=== PATIENT | female | born 1990 ===

== ENCOUNTER 2023-04-12 04:32 | Emergency (ER) | payer OTHER ==
--- NOTE | 2023-04-12 04:44 | ED Physician Documentation ---
PD HPI DYSPNEA - Stated complaint Stated Complaint: SOA - History obtained from History obtained from: Patient - Additional information Additional information: HPI from patient. Patient c/o pain across upper abdomen, described as "aching" that radiates around both sides to back and to both shoulders. Pain woke her from sleep at approximately 3:30 AM this morning. Denies h/o similar symptoms. Pain is pleuritic. Denies chances of . Has not noticed any leg swelling. Denies cough. No ameliorating factors. Review of Systems Constitutional: reports: Reviewed and negative Cardiac: denies: Chest pain / pressure, Palpitations, Pedal edema, Calf pain Respiratory: reports: Dyspnea (dyspnea only in the sense that the upper abdominal pain is pleuritic, making deep breath in difficult at times) PD PAST MEDICAL HISTORY - Past Medical History Past Medical History: No - Present Medications Home Medications: Ambulatory Orders Medication Instructions Recorded Confirmed lamoTRIgine [Lamotrigine Odt] 400 mg PO DAILY 04/12/23 04/12/23 traMADol [Ultram] 50 - 100 mg PO Q6H PRN #14 tablet 04/12/23 - Allergies Allergies/Adverse Reactions: Allergies Allergy/AdvReac Type Severity Reaction Status Date / Time azithromycin [From Zithromax] Allergy Severe Hives Verified 04/12/23 05:02 bupropion [From Wellbutrin] AdvReac Severe Unknown Verified 04/12/23 05:02 PD ED PE NORMAL - Vitals Vital signs reviewed: Yes - General General: Alert and oriented X 3, Well developed/nourished, Other (mostly NAD but episodically appears uncomfortable) - Cardiac Cardiac: RRR, No murmur, No gallop, No rub - Respiratory Respiratory: No respiratory distress, Clear bilaterally - Abdomen Abdomen: Soft, Non tender Results - Vitals Vitals: Oxygen O2 Source Room air - Labs Labs: Laboratory Tests 04/12/23 04/12/23 05:33 05:33 WBC 9.9 RBC 4.09 L Hgb 9.0 L Hct 29.6 L MCV 72.4 L MCH 22.0 L MCHC 30.4 L RDW 18.3 H Plt Count 273 MPV 9.1 Neut # (Auto) 8.4 H Lymph # (Auto) 0.7 L Branch # (Auto) 0.7 Eos # (Auto) 0.1 Baso # (Auto) 0.0 Absolute Nucleated RBC 0.00 Nucleated RBC % 0.0 Sodium 136 Potassium 3.7 Chloride 108 Carbon Dioxide 23 Anion Gap 5.0 L BUN 11 Creatinine 0.8 Estimated GFR (MDRD) 84 L Glucose 93 Calcium 8.7 Total Bilirubin 0.9 AST 361 H ALT 171 H Alkaline Phosphatase 154 H Total Protein 6.6 Albumin 3.7 Globulin 2.9 Albumin/Globulin Ratio 1.3 Lipase 35 PD Medical Decision Making - ED course Complexity details: reviewed results, re-evaluated patient, considered differential, d/w patient ED course: Given IM toradol and, on reevaluation, she is sleeping; awakens easily to voice, reports good symptomatic relief. Results d/w patient. Notable abnormalities include h/h of 9.0/29.6 with low indices, and AST/ALT 361/171, alkaline phosphatase 154 but normal bilirubin. No abnormalities on electrolytes, bun/creatinine, blood sugar. There are no previous results available for comparison. Differential diagnoses included gallstones, gastritis, GERD. Unfortunately, US is not available at this hour. Given patient's symptom resolution with non- narcotic (ketorolac), it is reasonable to defer further study (such as RUQ US) to outpatient setting. Return precautions are carefully reviewed/emphasized. Regarding elevated transaminases, patient denies any heavy/regular/recent alcohol use and she uses tylenol occasionally but her description is not of overuse (frequency nor dose). No recent travel outside of [place] (viral hepatitis also on differential). Patient asks about rx for toradol. Given the specific warning regarding regular toradol use and possible effect on renal function, we discussed other options for PO pain control should she have recurrence of this pain, and tramadol is e- prescribed I am prescribing a short course of short-acting opioid pain medication for this patient. I have reviewed the patients [employer] and no concerning findings were noted. I have discussed that the opioids are for short term therapy only, and wi ll not be refilled from the ED. Departure - Departure Disposition: 01 Home, Self Care Clinical Impression: Abdominal pain Qualifiers: Abdominal location: upper abdomen, unspecified Qualified Code(s): R10.10 - Upper abdominal pain, unspecified Anemia Qualifiers: Anemia type: unspecified type Qualified Code(s): D64.9 - Anemia, unspecified Condition: Good Instructions: ED Abdominal Pain Female Non-Specific Abdominal Pain, ED Anemia Type Not Specified Follow-Up: [facility] [Provider Group] Prescriptions: traMADol [Ultram] 50 - 100 mg PO Q6H PRN #14 tablet PRN Reason: Pain >8 Comments: There were no diagnostic findings on tonight's blood test. Your red blood cell levels are low (anemia). The levels are not nearly low enough to require transfusions, and I do not think they are low enough to cause any significant symptoms. Some degree of fatigue/lack of energy could be attributed to your anemia. You should follow-up with your primary care provider to discuss this finding. Further testing would likely lead to an explanation for regarding the cause of the anemia, which, in turn, might indicate a specific treatment to help raise your red blood cell levels to a normal range. For example, iron deficiency anemia is one of the more likely causes of your anemia based on some of the other lab tests on the red blood cells. This can be determined by your primary care provider. Alternatively, your primary care provider might have already performed these tests, in which case they will likely recommend that you take daily iron pills. The only other notable finding on your blood tests were your liver function tests; specifically, you had mild elevations in your liver enzymes. It is not clear what is causing this finding, but it could possibly explain your abdominal pain (the liver is in the right upper quadrant and across the upper abdomen in the midline, and elevated liver enzymes might indicate inflammation of the liver, which is typically painful). You should most certainly follow-up with your primary care provider, ideally within the next 7 to 10 days, for reevaluation of this finding. Further testing will likely be necessary (such as repeat testing of the liver enzymes to see if they remain elevated, and then other tests if the liver function test have not returned to normal). To help control your pain on a short-term basis, I am electronically submitting a prescription for tramadol (mild opiate/narcotic pain medication) to the [facility] pharmacy in [place]. I am prescribing a short course of narcotic pain medication for you. These are potentially dangerous and addictive medications that should be used carefully. These medications may constipate you. Take an fqjl-rhw-krnqjez stool softener (docusate) twice daily with plenty of water while taking these medications. If you go 24 hours without a bowel movement, take tccb-[id number] miralax, per package instructions. Do not drink or drive while taking these medications. If you received narcotic or sedating medications while in the emergency department, do not drive for 24 hours. Store this medication in a safe, secure place and out of reach of children. It is a violation of federal law to give or sell this medication to another p erson or to use in a manner other than prescribed. The ED will not refill narcotic prescriptions, including prescriptions lost or stolen. To dispose of unwanted medications: 1. [facility] [address] in [place] has a medication drop box. They accept prescription medications (in pill form) Friday through Friday 9:00 a.m. to 5:00 p.m. 2. [facility] accepts prescription medications (in pill form only) for disposal year round. Call for more information. 3. Contact the [facility] for the next [facility] sponsored prescription drug collection event. , [phone], or [phone]; Forms: PCP List Discharge Date/Time: 04/12/23 07:04
[2023-04-12] MEDS ORDERED: KETOROLAC 60 MG/2 ML VIAL IM STA (05:26)
[2023-04-12 05:37] LABS: BASOPHILS % (AUTO) 0.2 %; EOSINOPHILS # (AUTO) 0.1 10^3/uL (0.0-0.7); HCT - HEMATOCRIT 29.6 % (37.0-47.0); LYMPHOCYTES # (AUTO) 0.7 10^3/uL (1.5-3.5); LYMPHOCYTES % (AUTO) 7.3 %; MEAN CORPUSCULAR HGB CONC 30.4 g/dL (32.0-36.0); MEAN CORPUSCULAR VOLUME 72.4 fL (81.0-99.0); MEAN PLATELET VOLUME 9.1 fL (7.9-10.8); MONOCYTES # (AUTO) 0.7 10^3/uL (0.0-1.0); MONOCYTES % (AUTO) 6.6 %; NEUTROPHILS # (AUTO) 8.4 10^3/uL (1.5-6.6); NEUTROPHILS % (AUTO) 84.5 %; PLT - PLATELET COUNT 273 10^3/uL (130-450); RED BLOOD COUNT 4.09 10^6/uL (4.20-5.40); RED CELL DISTRIBUTION WIDTH 18.3 % (12.0-15.0); WHITE BLOOD COUNT 9.9 x10^3/uL (4.8-10.8)
[2023-04-12 05:54] LABS: ALBUMIN 3.7 g/dL (3.2-5.5); ALBUMIN/GLOBULIN RATIO 1.3 (1.0-2.2); BILIRUBIN,TOTAL 0.9 mg/dL (0.2-1.0); CALCIUM 8.7 mg/dL (8.5-10.3); CREATININE 0.8 mg/dL (0.6-1.3); POTASSIUM 3.7 mmol/L (3.5-4.5); TOTAL PROTEIN 6.6 g/dL (6.4-8.9)
[2023-04-12 07:07] VITALS: BP 101/47
== END 2023-04-12 07:04 | disposition home or self-care (01) ==
LOC: ED 04:32
DX: R10.10 Upper abdominal pain, unspecified (principal); D64.9 Anemia, unspecified; R74.01 Elevation of levels of liver transaminase levels
CPT/HCPCS: 36415; 80053; 83690; 85025; 96372; 99283; 99284

== ENCOUNTER 2024-01-30 06:29 | Day surgery (SDC) | payer OTHER ==
[~2024-01-30 06:29] MED LIST: ceFAZolin 1 GM VIAL ONE; ceFAZolin 2 GM VIAL ONE; metroNIDAZOLE 500 MG/100 ML 500 MG/100 ML BAG ONE
[2024-01-30] MEDS: LACTATED RINGERS 1,000 ML IV ONE (06:33)
[2024-01-30 06:51] LABS: HCG UR QUAL NEGATIVE
[2024-01-30] MEDS: ACETAMINOPHEN 325 MG TABLET PO ONE (06:59)
[2024-01-30] MEDS ORDERED: LIDOCAINE-PF 2% 10 ML AMP SUBQ ONE (07:06)
[2024-01-30] MEDS ORDERED: PROPOFOL 200 MG/20 ML VIAL IVP ONE ×2 (07:06→08:46)
[2024-01-30] MEDS ORDERED: ROCURONIUM 50 MG/5 ML VIAL ONE ×2 (07:06→08:19)
[2024-01-30] MEDS ORDERED: MIDAZOLAM 2 MG/2 ML VIAL ONE (07:06)
[2024-01-30] MEDS ORDERED: ONDANSETRON 4 MG/2 ML VIAL ONE (07:06)
[2024-01-30] MEDS ORDERED: DEXAMETHASONE 4 MG/ML VIAL ONE (07:06)
[2024-01-30] MEDS ORDERED: KETOROLAC 30 MG/ML VIAL ONE (07:06)
[2024-01-30] MEDS ORDERED: fentaNYL 100 MCG/2 ML VIAL ONE (07:06)
[2024-01-30 07:25] LABS: BASOPHILS # (AUTO) 0.1 10^3/uL (0.0-0.1); BASOPHILS % (AUTO) 0.8 %; EOSINOPHILS # (AUTO) 0.3 10^3/uL (0.0-0.7); HCT - HEMATOCRIT 36.6 % (37.0-47.0); HGB - HEMOGLOBIN 11.8 g/dL (12.0-16.0); LYMPHOCYTES # (AUTO) 2.8 10^3/uL (1.5-3.5); LYMPHOCYTES % (AUTO) 33.5 %; MEAN CORPUSCULAR HEMOGLOBIN 26.7 pg (27.0-31.0); MEAN CORPUSCULAR HGB CONC 32.2 g/dL (32.0-36.0); MEAN CORPUSCULAR VOLUME 82.8 fL (81.0-99.0); MONOCYTES # (AUTO) 0.6 10^3/uL (0.0-1.0); MONOCYTES % (AUTO) 6.8 %; NEUTROPHILS # (AUTO) 4.6 10^3/uL (1.5-6.6); NEUTROPHILS % (AUTO) 55.4 %; PLT - PLATELET COUNT 295 10^3/uL (130-450); RED BLOOD COUNT 4.42 10^6/uL (4.20-5.40); WHITE BLOOD COUNT 8.3 x10^3/uL (4.8-10.8)
[2024-01-30] MEDS ORDERED: ePHEDrine 50 MG/ML VIAL IVP PRN (07:29)
[2024-01-30] MEDS ORDERED: NALOXONE 0.4 MG/ML VIAL IVP PRN (07:29)
[2024-01-30] MEDS ORDERED: HYDROmorphone 0.5 MG/0.5 ML SYRINGE IVP PRN (07:29)
[2024-01-30] MEDS ORDERED: ONDANSETRON 4 MG/2 ML VIAL IVP PRN (07:29)
[2024-01-30] MEDS ORDERED: METOCLOPRAMIDE 10 MG/2 ML VIAL IVP PRN (07:29)
[2024-01-30] MEDS ORDERED: MORPHINE 2 MG/ML CARPUJECT IVP PRN (07:29)
[2024-01-30] MEDS ORDERED: BUPIVACAINE 0.25% PF 30 ML VIAL ONE (07:29)
[2024-01-30] MEDS ORDERED: ATROPINE ABBOJECT 1 MG/10 ML SYRINGE IVP PRN (07:29)
[2024-01-30] MEDS ORDERED: fentaNYL 100 MCG/2 ML VIAL IVP PRN (07:29)
--- NOTE | 2024-01-30 07:29 | ANESTHESIA ---
Pre-Anesthesia VS, & Labs - Diagnosis DESIRES STERILIZATION - Procedure LAP SALPINGECTOMY Vital Signs: Temp Pulse Resp BP Pulse Ox O2 Flow Rate 36.8 C 62 12 99/51 L 99 01/30/24 06:55 01/30/24 06:55 01/30/24 06:55 01/30/24 06:55 01/30/24 06:55 Height: 5 ft 8 in Weight (kg): 129.3 kg Body Mass Index: 43.3 BMI Classification: Morbidly Obese - NPO >8 hours - Is Patient ?: No - Lab Results Current Lab Results: Laboratory Tests 01/30/24 07:05: WBC 8.3, RBC 4.42, Hgb 11.8 L, Hct 36.6 L, MCV 82.8, MCH 26.7 L, MCHC 32.2, RDW 16.0 H, Plt Count 295, MPV 9.0, Neut # (Auto) 4.6, Lymph # (Auto) 2.8, [place] # (Auto) 0.6, Eos # (Auto) 0.3, Baso # (Auto) 0.1, Absolute Nucleated RBC 0.00, Nucleated RBC % 0.0 Fish Bones: 01/30/24 07:05 Home Medications and Allergies Home Medications: Ambulatory Orders Cetirizine [ZyrTEC] 10 mg PO DAILY 01/22/24 Active Medications Cefazolin Sodium 3 gm/ Sodium (Chloride) 50 mls @ 100 mls/hr IV ONCE ONE Stop: 01/30/24 08:29 lamoTRIgine [Lamotrigine Odt] 200 mg PO BID 04/12/23 Cetirizine [ZyrTEC] 10 mg PO DAILY 01/22/24 Allergies/Adverse Reactions: Allergies Allergy/AdvReac Type Severity Reaction Status Date / Time azithromycin [From Zithromax] Allergy Severe Anaphylaxis Verified 01/22/24 14:03 bupropion [From Wellbutrin] AdvReac Severe Unknown Verified 04/12/23 05:02 mycins Allergy Hives Uncoded 01/22/24 14:03 Anes History & Medical History - Anesthetic History Anesthesia Complications: reports: No previous complications Family history of Anesthesia Complications: Denies Family history of Malignant Hyperthermia: Denies - Medical History Cardiovascular: reports: None Pulmonary: reports: Sleep apnea, CPAP use Gastrointestinal: reports: None (PARISH EN Y), Other Urinary: reports: None Neuro: reports: Seizure disorder Musculoskeletal: reports: Chronic back pain Endocrine/Autoimmune: reports: None Skin: reports: Psoriasis Smoking Status: Never smoker Psychosocial: reports: No issues indicated History of Cancer?: No - Surgical History General: reports: Gastric surgery Orthopedic: reports: Other Exam General: Alert, Oriented x3, Cooperative Dental: Other (PROMINENT INCISORS) Mouth Openin Fingerbreadth Mallampati classification: II Thyromental Distance: less than 4 cm Respiratory: Lungs clear Cardiovascular: Regular rate Plan Anesthesia Type: General Consent for Procedure(s) Verified and Reviewed: Yes Code Status: Attempt Resuscitation ASA classification: 3-Severe systemic disease Is this case an emergency?: No
[2024-01-30 07:37] LABS: ALBUMIN 4.2 g/dL (3.2-5.5); ALBUMIN/GLOBULIN RATIO 1.6 (1.0-2.2); BILIRUBIN,TOTAL 0.4 mg/dL (0.2-1.0); CALCIUM 9.1 mg/dL (8.5-10.3); CREATININE 0.8 mg/dL (0.6-1.3); TOTAL PROTEIN 6.9 g/dL (6.4-8.9)
[2024-01-30] MEDS ORDERED: LACTATED RINGERS 1,000 ML IV SCH (08:00)
[2024-01-30] MEDS: BUPIVACAINE 0.25% PF 30 ML VIAL SUBQ ONE (08:35)
[2024-01-30] MEDS ORDERED: SUGAMMADEX 200 MG/2 ML VIAL IVP ONE (08:38)
[2024-01-30] MEDS: LACTATED RINGERS 600 ML IV ONE ×2 (09:03→09:31)
[2024-01-30 09:18] VITALS: O2SAT 100
--- NOTE | 2024-01-30 09:45 | ANESTHESIA POST OP EVALUATION ---
Anesthesia Post Eval - Post Anesthesia Eval Vitals: Last Vital Signs Temp 36.4 C L 01/30/24 09:32 Pulse 49 L 01/30/24 09:32 Resp 19 01/30/24 09:32 BP 130/89 H 01/30/24 09:32 Pulse Ox 100 01/30/24 09:32 O2 Flow Rate CV Function Including HR & BP: Stable Pain Control: Satisfactory Nausea & Vomiting: Negative Mental Status: Baseline Respiratory Status: Airway Patent Hydration Status: Satisfactory Anesthesia Complications: None
[2024-01-30] MEDS ORDERED: oxyCODONE 5 MG TABLET ONE (10:08)
[2024-01-30 10:09] VITALS: BP 119/106
[2024-01-30] MEDS: oxyCODONE 5 MG TABLET PO PRN (10:10)
--- NOTE | 2024-01-30 22:17 | OPERATIVE REPORT ---
Operative Report - General Procedure Date: 01/30/24 Procedure Performed: Laparoscopy with removal of both fallopian tubes for sterility. removal of Nexplanon device from left arm. - Procedure Note Anesthesia Technique: General ET tube - Other Other Information/Narrative: Pre-Op Diagnosis: Undesired future fertility, wishes Nexplanon removed. Morbid obesity. Post-Op Diagnosis: same Surgeon: Thais Godwin MD Log Brander in OR: Ya Alas MD My assistant professor of theater was present throughout the entire case and assisted with placing trocars, retraction and tissue stabilization and closing the abdominal incisions after the case was completed. Anesthesia Type: GET by Latasha Connors CRNA Findings: abdominal skin with rash at level of umbilicus and groin that appears yeasty, very red. uterus, tubes and ovaries appeared normal. Liver appeared normal. Vaginal introitus appeared almost virginal. Clinical history: Patient is a 33 yo with a Nexplanon who presents for laparoscopy for st erilization. She has been counseled that this procedure should be considered permanent and irreversible and she is sure that she never wants to be able to spontaneously get again. She would like her Nexplanon removed as well. She has signed the appropriate consent forms. Procedure: After explaining the risks and benefits, indications and alternatives, the patient was taken to the operating room where general anesthesia was induced without difficulty. She was then prepped and draped in the normal sterile fashion in the dorsal lithotomy position in yellow fin stirrups. A timeout was performed. SCDs were on prior to procedure. Preoperative antibiotics were not indicated. A graves speculum was placed in the vagina I grasped the cervix with a tenaculum and the uterine manipulator was placed. I removed the speculum and catheter were placed. I then changed my gloves and turned attention to the patient's abdomen. The umbilicus was infiltrated with quarter percent Marcaine. A 5mm incision was made just above the umbilicus. A 5 mm optical port was placed with a 5 mm 0 degree scope. The abdomen was filled with CO2 gas to 15 mm hg of pressure. Other 5 mm ports were placed in the left and the right lower mid abdomen.The right tube was grasped and elevated. The LigaSure device was used to seal and transect the mesosalpinx freeing the tube. Care was taken to avoid the infundibulopelvic, utero-ovarian and round ligaments. The tube was then brought up through the trocar and discarded after photographing it. A similar procedure was done on the left side. The areas of dissection were hemostatic. Pictures were taken. The rest of the pelvis appears normal. The ports were then removed. The skin was closed with 4-0 Monocryl and then steristrips were placed on all the incisions. Vaginal instruments and catheter were removed. There was an area on the hymenal ring that was bleeding and a stitch of 3-0 Monocryl was placed with good hemostasis. The left arm was examined and Nexplanon examined. Area was prepped, injected with some marcaine. Incision was made with the knife. Nexplanon was manipulated and grasped with a hemostat and removed. Steristrip was placed and bandaid. The patient was awakened, extubated, and taken to PACU in stable condition. IVF: 1300 cc Urine Output 150 cc EBL: 10 cc. Specimens Removed: fallopian tubes are removed and not sent to pathology as they appear normal. Patient agreed to this ahead of time. Complications: None Implants/Grafts: none
== END 2024-01-30 06:30 | disposition home or self-care (01) ==
LOC: SDS 06:29
PROVIDERS: ATTEND Obstetrics & Gynecology
PROC: 0JPV0HZ Removal of Contraceptive Device from Upper Extremity Subcutaneous Tissue and Fascia, Open Approach (ICD-10-PCS; 2024-01-30)
PROC: 0UT74ZZ Resection of Bilateral Fallopian Tubes, Percutaneous Endoscopic Approach (ICD-10-PCS; principal; 2024-01-30 07:30)
DX: Z30.2 Encounter for sterilization (principal); E66.01 Morbid (severe) obesity due to excess calories; Z68.41 Body mass index [BMI] 40.0-44.9, adult; G47.30 Sleep apnea, unspecified; G40.909 Epilepsy, unspecified, not intractable, without status epilepticus
CPT/HCPCS: 11982; 36415; 58661; 80053; 81025; 85025; A9270; J7040; J7120

== ENCOUNTER 2024-04-26 08:46 | Outpatient (CLI) | payer OTHER ==
[2024-04-26 14:09] LABS: ALBUMIN 3.9 g/dL (3.2-5.5); ALBUMIN/GLOBULIN RATIO 1.2 (1.0-2.2); ALKALINE PHOSPHATASE 89 IU/L (42-121); ALT ALANINE AMINOTRANSFERASE 17 IU/L (10-60); AST ASPARTATE AMINOTRANSFERASE 18 IU/L (10-42); BILIRUBIN,TOTAL 0.5 mg/dL (0.2-1.0); BUN - BLOOD UREA NITROGEN 8 mg/dL (6-20); CALCIUM 8.7 mg/dL (8.5-10.3); CARBON DIOXIDE - CO2 27 mmol/L (21-32); CHLORIDE 104 mmol/L (101-111); CHOL/HDL RATIO 3.5 (<4.4); CHOLESTEROL 180 mg/dL; CREATININE 0.8 mg/dL (0.6-1.3); GFR - MDRD 83 (>89); GLUCOSE 85 mg/dL (74-104); HDL CHOLESTEROL 51 mg/dL; LDL CHOLESTEROL,CALCULATED 96 mg/dL; LDL/HDL RATIO 1.9 (<4.4); POTASSIUM 4.2 mmol/L (3.5-4.5); SODIUM 137 mmol/L (135-145); TOTAL PROTEIN 7.1 g/dL (6.4-8.9); TRIGLYCERIDES 166 mg/dL; VLDL CHOLESTEROL 33 mg/dL
[2024-04-26 14:34] LABS: BASOPHILS # (AUTO) 0.1 10^3/uL (0.0-0.1); BASOPHILS % (AUTO) 0.7 %; EOSINOPHILS # (AUTO) 0.2 10^3/uL (0.0-0.7); EOSINOPHILS % (AUTO) 2.7 %; HCT - HEMATOCRIT 39.8 % (37.0-47.0); HGB - HEMOGLOBIN 12.6 g/dL (12.0-16.0); LYMPHOCYTES # (AUTO) 2.9 10^3/uL (1.5-3.5); LYMPHOCYTES % (AUTO) 32.7 %; MEAN CORPUSCULAR HEMOGLOBIN 28.3 pg (27.0-31.0); MEAN CORPUSCULAR HGB CONC 31.7 g/dL (32.0-36.0); MEAN CORPUSCULAR VOLUME 89.4 fL (81.0-99.0); MEAN PLATELET VOLUME 9.8 fL (7.9-10.8); MONOCYTES # (AUTO) 0.6 10^3/uL (0.0-1.0); NEUTROPHILS % (AUTO) 56.7 %; PLT - PLATELET COUNT 315 10^3/uL (130-450); RED BLOOD COUNT 4.45 10^6/uL (4.20-5.40); WHITE BLOOD COUNT 8.9 x10^3/uL (4.8-10.8)
[2024-04-26 14:49] LABS: THYROID STIMULATING HORMONE 1.78 uIU/mL (0.34-5.60)
[2024-04-26 23:32] LABS: ESTIMATED AVERAGE GLUCOSE 100 mg/dL (70-100); HEMOGLOBIN A1c% 5.1 % (4.27-6.07)
== END 2024-04-26 08:47 | disposition home or self-care (01) ==
LOC: LAB.N 08:46
DX: R20.0 Anesthesia of skin (principal); E66.01 Morbid (severe) obesity due to excess calories
CPT/HCPCS: 36415; 80050; 80061; 83036; 83721